=== PATIENT | male | born 1985 | race Hispanic/Latino ===

== ENCOUNTER 2020-10-12 20:16 | Emergency (ER) | payer SELFPAY ==
[2020-10-12 21:10] LABS: Bilirubin Neg (Negative); Blood, Urine Negative (Negative); Clarity Clear (Clear); Glucose, Urine (Dipstick) Normal (Negative); Ketone, Urine 5 mg/dL (Negative); Leukocyte Negative (Negative); Nitrite Negative (Negative); Protein, Urine (Dipstick) Negative (Neg-Trace); Specific Gravity, Urine 1.015 (1.002-1.036); pH, Urine 6.5 (5.0-9.0)
== END 2020-10-12 21:19 | disposition left against medical advice (07) ==
LOC: CSHERS 20:16
DX: Z53.21 Procedure and treatment not carried out due to patient leaving prior to being seen by health care provider (principal)
CPT/HCPCS: 81003